=== PATIENT | female | born 1950 | race Caucasian/White ===

== ENCOUNTER → 2021-01-18 | Outpatient (CLI) | payer MEDICARE | END | disposition home or self-care (01) | LOC: STAR 10:58 | PROVIDERS: ATTEND Internal Medicine | DX: Z01.818 Encounter for other preprocedural examination (principal); R93.5 Abnormal findings on diagnostic imaging of other abdominal regions, including retroperitoneum; K86.2 Cyst of pancreas; Z20.822 Contact with and (suspected) exposure to COVID-19 | CPT/HCPCS: 82378; 86301; 87635; 93005 ==

== ENCOUNTER 2021-01-24 09:23 | Day surgery (SDC) | payer MEDICARE ==
[~2021-01-24] VITALS: Ht 154.9 cm; Wt 84.1 kg
[2021-01-24] MEDS ORDERED: NO HOME MEDS PER PT (09:49)
[2021-01-24] MEDS ORDERED: CHLORHEXIDINE 15 ML UDC ONE (09:55)
[2021-01-24] MEDS ORDERED: CHLORHEXIDINE 15 ML UDC MM ONE (10:00)
[2021-01-24] MEDS ORDERED: LACTATED RINGERS 1,000 ML IV SCH (10:00)
[2021-01-24 10:05] VITALS: BP 147/84
[2021-01-24] MEDS ORDERED: ALBUTEROL SULFATE 2.5 MG/3 ML NPPB PRN (10:30)
[2021-01-24] MEDS ORDERED: KETOROLAC 30 MG/1 ML IV PRN (10:30)
[2021-01-24] MEDS ORDERED: OXYcodone 5 MG/5 ML ORAL.SOL UDC PO PRN (10:30)
[2021-01-24] MEDS ORDERED: HYDROcodone/APAP 7.5-325MG/15ML UDC PO PRN (10:30)
[2021-01-24] MEDS ORDERED: FENTANYL PF 100 MCG/2ML IV PRN (10:30)
[2021-01-24] MEDS ORDERED: DIPHENHYDRAMINE 50 MG/ML, 1ML IVPush PRN (10:30)
[2021-01-24] MEDS ORDERED: LABETALOL 5MG/ML, 20ML IV PRN (10:30)
[2021-01-24] MEDS ORDERED: DIAZEPAM 5 MG/ML, 2ML IVPush PRN (10:30)
[2021-01-24] MEDS ORDERED: EPHEDRINE 50 MG/ML, 1ML IVPush PRN (10:30)
[2021-01-24] MEDS ORDERED: METOCLOPRAMIDE 5 MG/ML, 2ML IVPush PRN (10:30)
[2021-01-24] MEDS ORDERED: HYDROmorphone 1 MG/ML, 1ML INJ IVPush PRN (10:30)
[2021-01-24] MEDS ORDERED: EPHEDRINE 50 MG/ML, 1ML IM PRN (10:30)
[2021-01-24] MEDS ORDERED: ONDANSETRON 2MG/ML, 2ML IVPush PRN (10:30)
[2021-01-24] MEDS ORDERED: HALOPERIDOL 5 MG/ML IV PRN (10:30)
[2021-01-24] MEDS ORDERED: LORazepam 2 MG/ML, 1ML IVPush PRN (10:30)
[2021-01-24] MEDS ORDERED: MIDAZOLAM 1 MG/ML, 2ML IV PRN (10:30)
[2021-01-24] MEDS ORDERED: hydrALAzine 20 MG/ML, 1ML IV PRN (10:30)
[2021-01-24] MEDS ORDERED: METHOCARBAMOL 1,000 MG in DEXTROSE 5% 100 ML IV PRN (10:30)
[2021-01-24] MEDS ORDERED: GLYCOPYRROLATE 0.2MG/1ML, 5ML ONE (11:10)
[2021-01-24] MEDS ORDERED: LIDOCAINE-MPF 2% ,5ML ONE (11:10)
[2021-01-24] MEDS ORDERED: PROPOFOL 10 MG/ML, 20ML ONE (11:10)
[2021-01-24] MEDS ORDERED: MIDAZOLAM 1 MG/ML, 2ML ONE (11:10)
[2021-01-24] MEDS ORDERED: DEXAMETHASONE 4 MG/ML, 5ML ONE (11:10)
[2021-01-24] MEDS ORDERED: ONDANSETRON 2MG/ML, 2ML ONE (11:39)
[2021-01-24] MEDS ORDERED: CIPROFLOXACIN/PMX 400MG/200ML 200 ML ONE (11:45)
[2021-01-24] MEDS ORDERED: OMNIPAQUE 350 MG/ML, 50 ML BOTTLE ONE (14:17)
== END 2021-01-24 13:50 | disposition home or self-care (01) ==
LOC: OUT 09:23
PROVIDERS: ATTEND Internal Medicine
DX: K80.70 Calculus of gallbladder and bile duct without cholecystitis without obstruction (principal); K86.2 Cyst of pancreas; K44.9 Diaphragmatic hernia without obstruction or gangrene; K21.9 Gastro-esophageal reflux disease without esophagitis; F41.9 Anxiety disorder, unspecified; M19.90 Unspecified osteoarthritis, unspecified site; Z79.899 Other long term (current) drug therapy; Z86.010 Personal history of colon polyps; Z87.891 Personal history of nicotine dependence; Z88.8 Allergy status to other drugs, medicaments and biological substances; Z90.710 Acquired absence of both cervix and uterus; Z96.652 Presence of left artificial knee joint
CPT/HCPCS: 43242; 43262; 43264; 74328; 82150; 82378; 88173; C1769; J0744; J1100; J2250; J2405; J2704; J7120; Q9967